=== PATIENT | male | born 1960 | race Caucasian/White ===

== ENCOUNTER 2017-09-27 22:17 | Emergency (ER) | payer OTHER ==
[2017-09-27 22:33] VITALS: BMI 38.7
--- NOTE | 2017-09-27 23:14 | PDOC ---
History of Present Illness - General History Source: Patient Exam Limitations: No Limitations - History of Present Illness Initial Comments: 09/28/17 00:43 The patient is a 55-year-old male, with a significant past medical history of HTN and diabetes, who presents to the ED with 5 days of midsternal chest pain. Pt states he broke a bone in his chest multiple times in the last few years and since then has been experiencing arthritic pain in that area. In the past week, the chest pain has been bothering the pt more often than usual and has radiated to his back. He reports eating out at [employer] and since then has been experiencing heartburn. Pt took Tums at home with no relief of his symptoms. The patient reports to the ED for further evaluation. The patient denies any shortness of breath or palpitations. He denies fever, chills, nausea, vomiting, diarrhea, or abdominal pain. <Fabienne Washington - Last Filed: 09/28/17 00:42> <Jessica Choudhary - Last Filed: 09/28/17 20:01> - General Chief Complaint: Chest Pain Stated Complaint: chest pain Time Seen by Provider: 09/27/17 22:38 Past History <Fabienne Washington - Last Filed: 09/28/17 00:42> - Suicide/Smoking/Psychosocial Hx Smoking History: Unknown if ever smoked Have you smoked in the past 12 months: No Information on smoking cessation initiated: No Hx Alcohol Use: No Drug/Substance Use Hx: No Substance Use Type: None <Jessica Choudhary - Last Filed: 09/28/17 20:01> - Past Medical History Allergies/Adverse Reactions: Allergies Allergy/AdvReac Type Severity Reaction Status Date / Time No Known Allergies Allergy Verified 09/27/17 22:33 Home Medications: Ambulatory Orders Alogliptin Bal/Pioglitazone [Oseni 25-30 mg Tablet] 1 each PO DAILY 09/27/17 Empagliflozin [Jardiance] 25 mg PO DAILY 09/27/17 Fosinopril Sodium 20 mg PO DAILY 09/27/17 Metformin HCl [Glucophage] 1,000 mg PO BID 09/27/17 Omeprazole 40 mg PO DAILY 09/27/17 Review of Systems - Review of Systems Able to Perform ROS?: Yes Comments:: 09/28/17 00:45 CONSTITUTIONAL: Absent: fever, chills, diaphoresis, generalized weakness, malaise, loss of appetite HEENT: Absent: rhinorrhea, nasal congestion, throat pain, throat swelling, difficulty swallowing, mouth swelling, ear pain, eye pain, visual Changes CARDIOVASCULAR: Present: chest pain Absent: syncope, palpitations, irregular heart rate, lightheadedness, peripheral edema RESPIRATORY: Absent: cough, shortness of breath, dyspnea with exertion, orthopnea, wheezing, stridor, hemoptysis GASTROINTESTINAL: Present: heartburn Absent: abdominal pain, abdominal distension, nausea, vomiting, diarrhea, constipation, melena, hematochezia GENITOURINARY: Absent: dysuria, frequency, urgency, hesitancy, hematuria, flank pain, genital pain MUSCULOSKELETAL: Present: back pain Absent: arthralgia, joint swelling SKIN: Absent: rash, itching, pallor HEMATOLOGIC/IMMUNOLOGIC: Absent: easy bleeding, easy bruising, lymphadenopathy, frequent infections ENDOCRINE: Absent: unexplained weight gain, unexplained weight loss, heat intolerance, cold intolerance NEUROLOGIC: Absent: headache, focal weakness or paresthesias, dizziness, unsteady gait, seizure, mental status changes, bladder or bowel incontinence PSYCHIATRIC: Absent: anxiety, depression, suicidal or homicidal ideation, hallucinations. <Fabienne Washington - Last Filed: 09/28/17 00:42> *Physical Exam - Vital Signs Last Vital Signs Temp Pulse Resp BP Pulse Ox 98.1 F 85 18 153/87 97 09/27/17 22:30 09/27/17 22:30 09/27/17 22:30 09/27/17 22:30 09/27/17 22:30 - Physical Exam Comments: 09/28/17 00:47 GENERAL: Well developed, well nourished. Awake and alert. No acute distress. NECK: Supple. Full ROM. No JVD. Carotid pulses 2+ and symmetric, without bruits. No thyromegaly. No lymphadenopathy. CARDIOVASCULAR: Regular rate and rhythm. No murmurs, rubs, or gallops. Distal pulses are 2+ and symmetric. PULMONARY: No evidence of respiratory distress. Lungs clear to auscultation bilaterally. No wheezing, rales or rhonchi. ABDOMINAL: (+)Obese, gassy. Soft. Non-tender. Non-distended. No rebound or guarding. No organomegaly. Normoactive bowel sounds. MUSCULOSKELETAL Normal range of motion at all joints. No bony deformities or tenderness. No CVA tenderness. No flank pain. EXTREMITIES: No cyanosis. No clubbing. No edema. No calf tenderness. SKIN: Warm and dry. Normal capillary refill. No rashes. No jaundice. NEUROLOGICAL: Alert, awake, appropriate. Neurologically intact <Fabienne Washington - Last Filed: 09/28/17 00:42> - Vital Signs Last Vital Signs Temp Pulse Resp BP Pulse Ox 98.1 F 85 18 153/87 97 09/27/17 22:30 09/27/17 22:30 09/27/17 22:30 09/27/17 22:30 09/27/17 22:30 <Jessica Choudhary - Last Filed: 09/28/17 20:01> ED Treatment Course - LABORATORY CBC & Chemistry Diagram: 09/28/17 00:38 09/28/17 00:38 <Jessica Choudhary - Last Filed: 09/28/17 20:01> Medical Decision Making - Medical Decision Making 09/28/17 19:54 Pt comes with gerd and chest doscomfort x 1 week. He feels it again today after eating a greasy meal at [facility]. Pt's exam and labs and EKG and CXR are all normal. He feels reassured. We discussed the importance of diet control and following with cardiology. <Jessica Choudhary - Last Filed: 09/28/17 20:01> *DC/Admit/Observation/Transfer - Attestations Scribe Attestion: 09/28/17 00:52 Documentation prepared by Fabienne Washington, acting as medical biller coder for Jessica Choudhary MD. <Fabienne Washington - Last Filed: 09/28/17 00:42> - Discharge Dispostion Admit: No <Jessica Choudhary - Last Filed: 09/28/17 20:01> Diagnosis at time of Disposition: GERD (gastroesophageal reflux disease) - Discharge Dispostion Disposition: HOME Condition at time of disposition: Stable - Referrals Referrals: Andrew Roldan MD [Primary Care Provider] - - Patient Instructions Printed Discharge Instructions: Gastroesophageal Reflux Disease (Alternative Therapy), Heartburn -- Overview, DI for Atypical Chest Pain - Post Discharge Activity
[2017-09-28 00:51] LABS: BASO % 0.5 % (0-2.0); EOS # 0.1 # (0-4.5); LYMPH # 1.6 (8-40); MCH 29.9 pg (25.7-33.7); MCHC 33.4 g/dl (32.0-35.9); MEAN CELL VOLUME 89.7 fl (80-96); MEAN PLT VOLUME 8.2 fl (7.5-11.1); MONO # 0.6 # (3.8-10.2); NEUT # 6.4 # (42.8-82.8); NEUT % 73.7 % (42.8-82.8); PLATELET COUNT 215 K/MM3 (134-434); RDW 13.9 % (11.9-15.9); WHITE BLOOD COUNT 8.7 K/mm3 (4.0-10.0)
[2017-09-28 01:22] LABS: ALBUMIN 3.9 g/dl (3.4-5.0); ALK PHOS 92 U/L (45-117); ANION GAP 8 (8-16); BILIRUBIN,TOTAL 0.4 mg/dL (0.2-1.0); CALCIUM 10.3 mg/dL (8.5-10.1); CO2 27 mmol/L (21-32); CREATININE 0.9 mg/dL (0.7-1.3); GLUCOSE,RANDOM 150 mg/dL (74-106); SGOT/AST 20 U/L (15-37); SGPT/ALT 35 U/L (12-78); TOT PROT 7.4 g/dl (6.4-8.2)
[2017-09-28 01:24] LABS: CPK 164 IU/L (39-308); TROPONIN I < 0.02 ng/ml (0.00-0.05)
[2017-09-28] MEDS ORDERED: RANITIDINE HCL 150 MG TABLET (FP) PO ONE (01:37)
[2017-09-28] MEDS ORDERED: RANITIDINE HCL 150 MG TABLET (FP) ONE (01:39)
[2017-09-28 03:18] VITALS: BP 152/86; PULSE 86; TEMP 98
--- NOTE | 2017-10-02 13:24 | EKG ---
Test Reason : Blood Pressure : / mmHG Vent. Rate : 077 BPM Atrial Rate : 077 BPM P-R Int : 160 ms QRS Dur : 082 ms QT Int : 356 ms P-R-T Axes : 030 079 059 degrees QTc Int : 402 ms SINUS RHYTHM WITH MARKED SINUS ARRHYTHMIA OTHERWISE NORMAL ECG NO PREVIOUS ECGS AVAILABLE Confirmed by JOSE COLÓN MD ([id number]) on 10/02/2017 1:24:37 PM Referred By: Confirmed By:JOSE COLÓN MD
== END 2017-09-28 03:17 | disposition home or self-care (01) ==
LOC: JER 22:17
DX: K21.9 Gastro-esophageal reflux disease without esophagitis (principal)
CPT/HCPCS: 36415; 71020-TC; 80053; 82550; 82553; 84484; 85025; 93005; 93010; 99282-25

== ENCOUNTER 2021-07-05 06:27 | Inpatient (IN) | payer OTHER ==
[2021-07-05] MEDS ORDERED: SODIUM CHLORIDE 500 ML IV STA (07:36)
[2021-07-05 08:17] LABS: BASO % 0.4 % (0-2.0); EOS % 0.8 % (0-4.5); HEMATOCRIT 36.7 % (35.4-49); HEMOGLOBIN 12.8 GM/dL (11.7-16.9); LYMPH % 11.3 % (8-40); MCH 30.5 pg (25.7-33.7); MEAN CELL VOLUME 87.2 fl (80-96); MEAN PLT VOLUME 8.1 fl (7.5-11.1); MONO % 5.8 % (3.8-10.2); NEUT % 81.7 % (42.8-82.8); PLATELET COUNT 177 10^3/uL (134-434); RDW 14.3 % (11.9-15.9); WHITE BLOOD COUNT 8.3 K/mm3 (4.0-10.0)
[2021-07-05 08:19] LABS: INR 1.07 (0.83-1.09); PROTHROMBIN TIME (PATIENT) 13.2 SEC (9.7-13.0)
[2021-07-05 08:32] LABS: ALBUMIN 3.5 g/dl (3.4-5.0); CALCIUM 9.3 mg/dL (8.5-10.1)
[2021-07-05 08:33] LABS: BLOOD UREA NITROGEN 16.3 mg/dL (7-18)
[2021-07-05 08:37] LABS: BILIRUBIN,TOTAL 0.5 mg/dL (0.2-1); TOT PROT 7.1 g/dl (6.4-8.2)
[2021-07-05] MEDS ORDERED: PANTOPRAZOLE SODIUM 40 MG VIAL IVPUSH SCH (13:30)
[2021-07-05] MEDS ORDERED: PANTOPRAZOLE SODIUM 40 MG/100 ML BAG IVPB ONE (13:37)
[2021-07-05] MEDS: SODIUM CHLORIDE 1,000 ML IV SCH ×2 (13:50→20:48)
[2021-07-05] MEDS: PANTOPRAZOLE SODIUM 40 MG VIAL IVPUSH SCH ×2 (14:00→21:30)
[2021-07-05 15:06] LABS: HEMATOCRIT 38.7 % (35.4-49); HEMOGLOBIN 13.3 GM/dL (11.7-16.9); MCH 30.7 pg (25.7-33.7); MCHC 34.3 g/dl (32.0-35.9); MEAN CELL VOLUME 89.4 fl (80-96); MEAN PLT VOLUME 8.4 fl (7.5-11.1); PLATELET COUNT 211 10^3/uL (134-434); RBC 4.33 M/mm3 (4.00-5.60); RDW 14.7 % (11.9-15.9); WHITE BLOOD COUNT 8.5 K/mm3 (4.0-10.0)
[2021-07-05] MEDS ORDERED: PNEUMOC 13-VAL CONJ-DIP CRM/PF 0.5 ML DISP.SYRIN IM ONE (20:28)
[2021-07-05 20:40] VITALS: BMI 39.3
[2021-07-05] MEDS ORDERED: PNEUMOCOCCAL 23 VACCINE 0.5 ML VIAL IM ONE (21:00)
[2021-07-05] MEDS ORDERED: FLU VACC QS2021-22(6MOS UP)/PF 60 MCG/0.5 ML SYRINGE IM ONE (21:00)
[2021-07-05] MEDS: INSULIN SLIDING SCALE (NOVOLOG) 1 VIAL SQ SCH (21:07)
[2021-07-06] MEDS ORDERED: ACETAMINOPHEN 325 MG TABLET (FP) PO PRN (05:22)
[2021-07-06] MEDS: INSULIN SLIDING SCALE (NOVOLOG) 1 VIAL SQ SCH ×5 (06:04→21:11)
[2021-07-06 08:07] LABS: HEMATOCRIT 34.8 % (35.4-49); HEMOGLOBIN 12.2 GM/dL (11.7-16.9); MCH 30.9 pg (25.7-33.7); MEAN CELL VOLUME 88.2 fl (80-96); MEAN PLT VOLUME 8.4 fl (7.5-11.1); PLATELET COUNT 168 10^3/uL (134-434); RBC 3.95 M/mm3 (4.00-5.60); RDW 14.4 % (11.9-15.9); WHITE BLOOD COUNT 6.9 K/mm3 (4.0-10.0)
[2021-07-06 08:37] LABS: CALCIUM 8.4 mg/dL (8.5-10.1)
[2021-07-06 08:38] LABS: MAGNESIUM 1.7 mg/dL (1.8-2.4)
[2021-07-06 08:40] LABS: CREATININE 0.9 mg/dL (0.55-1.3)
[2021-07-06 08:41] LABS: PHOSPHOROUS 2.8 mg/dL (2.5-4.9)
[2021-07-06] MEDS: PANTOPRAZOLE SODIUM 40 MG VIAL IVPUSH SCH (10:19)
[2021-07-06] MEDS: SODIUM CHLORIDE 1,000 ML IV SCH (10:33)
[2021-07-06] MEDS ORDERED: PEG 3350/NA SULF BICARB CL/KCL 4000 ML SOLN.RECON PO ONE (16:00)
[2021-07-06] MEDS: LISINOPRIL 20 MG TABLET PO SCH (17:28)
[2021-07-06 18:53] LABS: HEMATOCRIT 35.4 % (35.4-49); HEMOGLOBIN 12.4 GM/dL (11.7-16.9); MCH 30.5 pg (25.7-33.7); MCHC 34.9 g/dl (32.0-35.9); MEAN CELL VOLUME 87.6 fl (80-96); PLATELET COUNT 172 10^3/uL (134-434); RBC 4.04 M/mm3 (4.00-5.60); RDW 14.4 % (11.9-15.9); WHITE BLOOD COUNT 7.3 K/mm3 (4.0-10.0)
[2021-07-06] MEDS ORDERED: BISACODYL 5 MG TABLET.DR (FP) PO ONE (20:00)
[2021-07-06] MEDS: ATORVASTATIN CA 10 MG TABLET (FP) PO SCH (21:11)
[2021-07-07] MEDS: INSULIN SLIDING SCALE (NOVOLOG) 1 VIAL SQ SCH ×4 (07:00→21:13)
[2021-07-07 08:24] LABS: BASO % 0.4 % (0-2.0); EOS % 1.2 % (0-4.5); HEMATOCRIT 35.2 % (35.4-49); HEMOGLOBIN 12.3 GM/dL (11.7-16.9); LYMPH % 12.7 % (8-40); MCH 30.8 pg (25.7-33.7); MCHC 34.8 g/dl (32.0-35.9); MEAN CELL VOLUME 88.4 fl (80-96); MEAN PLT VOLUME 8.4 fl (7.5-11.1); MONO % 6.3 % (3.8-10.2); NEUT % 79.4 % (42.8-82.8); PLATELET COUNT 196 10^3/uL (134-434); RBC 3.98 M/mm3 (4.00-5.60); RDW 14.6 % (11.9-15.9); WHITE BLOOD COUNT 6.6 K/mm3 (4.0-10.0)
[2021-07-07 08:42] LABS: BLOOD UREA NITROGEN 8.2 mg/dL (7-18); CALCIUM 8.4 mg/dL (8.5-10.1)
[2021-07-07 08:45] LABS: CREATININE 0.9 mg/dL (0.55-1.3); MAGNESIUM 1.7 mg/dL (1.8-2.4)
[2021-07-07 08:46] LABS: PHOSPHOROUS 2.4 mg/dL (2.5-4.9)
[2021-07-07] MEDS: LISINOPRIL 20 MG TABLET PO SCH (09:26)
[2021-07-07] MEDS: PANTOPRAZOLE 20 MG TABLET PO SCH (09:26)
[2021-07-07] MEDS ORDERED: FOSINOPRIL SODIUM 20 MG PO SCH (10:00)
[2021-07-07] MEDS: SODIUM CHLORIDE 1,000 ML IV SCH (13:42)
[2021-07-07] MEDS ORDERED: MAGNESIUM OXIDE 400 MG TABLET (FP) PO ONE (16:35)
[2021-07-07] MEDS: ATORVASTATIN CA 10 MG TABLET (FP) PO SCH (21:13)
[2021-07-08] MEDS: INSULIN SLIDING SCALE (NOVOLOG) 1 VIAL SQ SCH ×5 (06:46→21:30)
[2021-07-08] MEDS: SODIUM CHLORIDE 1,000 ML IV SCH (06:58)
[2021-07-08] MEDS: PANTOPRAZOLE 20 MG TABLET PO SCH (09:01)
[2021-07-08] MEDS: LISINOPRIL 20 MG TABLET PO SCH (09:01)
[2021-07-08 09:41] LABS: HEMATOCRIT 33.6 % (35.4-49); HEMOGLOBIN 11.8 GM/dL (11.7-16.9); MEAN CELL VOLUME 88.7 fl (80-96); MEAN PLT VOLUME 8.4 fl (7.5-11.1); PLATELET COUNT 194 10^3/uL (134-434); RBC 3.79 M/mm3 (4.00-5.60); RDW 14.7 % (11.9-15.9); WHITE BLOOD COUNT 6.2 K/mm3 (4.0-10.0)
[2021-07-08 10:06] LABS: CALCIUM 8.1 mg/dL (8.5-10.1)
[2021-07-08 10:07] LABS: ALBUMIN 3.2 g/dl (3.4-5.0); BLOOD UREA NITROGEN 6.8 mg/dL (7-18); MAGNESIUM 1.7 mg/dL (1.8-2.4)
[2021-07-08 10:08] LABS: CREATININE 1.1 mg/dL (0.55-1.3); PHOSPHOROUS 2.2 mg/dL (2.5-4.9)
[2021-07-08 10:10] LABS: BILIRUBIN,TOTAL 0.6 mg/dL (0.2-1); TOT PROT 6.5 g/dl (6.4-8.2)
[2021-07-08] MEDS ORDERED: MAGNESIUM OXIDE 400 MG TABLET (FP) PO ONE (17:08)
[2021-07-08] MEDS ORDERED: INSULIN (NOVOLOG) ASPART 100 UNITS/ML 10ML VIAL ONE (21:13)
[2021-07-08] MEDS: ATORVASTATIN CA 10 MG TABLET (FP) PO SCH (21:29)
[2021-07-08] MEDS: INSULIN (LEVEMIR) 100 UNITS/ML UNITS SQ SCH (21:29)
[2021-07-08] MEDS: NAPH,MB-DB/K PH,MBDB POWDER PACKET PO SCH (21:29)
[2021-07-08 23:03] VITALS: PULSE 73
[2021-07-09 06:05] VITALS: TEMP 98.2
[2021-07-09] MEDS: INSULIN SLIDING SCALE (NOVOLOG) 1 VIAL SQ SCH ×2 (06:11→11:38)
[2021-07-09 08:42] VITALS: BP 130/74
[2021-07-09] MEDS: NAPH,MB-DB/K PH,MBDB POWDER PACKET PO SCH (09:01)
[2021-07-09] MEDS: PANTOPRAZOLE 20 MG TABLET PO SCH (09:01)
[2021-07-09] MEDS: LISINOPRIL 20 MG TABLET PO SCH (09:01)
[2021-07-09] MEDS: INSULIN (LEVEMIR) 100 UNITS/ML UNITS SQ SCH (09:02)
[2021-07-09 09:56] LABS: BASO % 0.5 % (0-2.0); EOS % 0.8 % (0-4.5); HEMATOCRIT 35.9 % (35.4-49); HEMOGLOBIN 12.3 GM/dL (11.7-16.9); MCH 30.6 pg (25.7-33.7); MCHC 34.4 g/dl (32.0-35.9); MEAN CELL VOLUME 89.1 fl (80-96); MEAN PLT VOLUME 8.2 fl (7.5-11.1); MONO % 6.8 % (3.8-10.2); NEUT % 77.9 % (42.8-82.8); PLATELET COUNT 206 10^3/uL (134-434); RBC 4.02 M/mm3 (4.00-5.60); RDW 14.7 % (11.9-15.9); WHITE BLOOD COUNT 6.7 K/mm3 (4.0-10.0)
[2021-07-09 10:13] LABS: BLOOD UREA NITROGEN 8.6 mg/dL (7-18); CALCIUM 8.6 mg/dL (8.5-10.1); CO2 26 mmol/L (21-32); GLUCOSE,RANDOM 213 mg/dL (74-106)
[2021-07-09 10:17] LABS: CREATININE 0.9 mg/dL (0.55-1.3)
[2021-07-09 11:44] LABS: SODIUM 141 mmol/L (136-145)
[2021-07-09 11:45] LABS: CHLORIDE 109 mmol/L (98-107)
== END 2021-07-09 15:10 | disposition home or self-care (01) | DRG 379 ==
LOC: JER 06:27 → JERBED 12:45 → J6S 20:16
PROVIDERS: ATTEND Internal Medicine
PROC: 0DB78ZX Excision of Stomach, Pylorus, Via Natural or Artificial Opening Endoscopic, Diagnostic (ICD-10-PCS; 2021-07-07)
PROC: 0DB98ZX Excision of Duodenum, Via Natural or Artificial Opening Endoscopic, Diagnostic (ICD-10-PCS; 2021-07-07)
PROC: 0DJD8ZZ Inspection of Lower Intestinal Tract, Via Natural or Artificial Opening Endoscopic (ICD-10-PCS; principal; 2021-07-07 12:30)
DX: K57.31 Diverticulosis of large intestine without perforation or abscess with bleeding (principal); E11.9 Type 2 diabetes mellitus without complications; I10 Essential (primary) hypertension; E66.9 Obesity, unspecified; Z68.39 Body mass index [BMI] 39.0-39.9, adult; Z79.84 Long term (current) use of oral hypoglycemic drugs; R19.7 Diarrhea, unspecified; K64.8 Other hemorrhoids; K44.9 Diaphragmatic hernia without obstruction or gangrene; K26.9 Duodenal ulcer, unspecified as acute or chronic, without hemorrhage or perforation
CPT/HCPCS: 36415; 71045-TC-FY; 74177-TC; 80048; 80053; 82272; 82962; 83735; 84100; 85025; 85027; 85610; 86850; 86900; 86901; 87045; 87046; 87177; 87186; 87209; 88305-TC; 90686; 90732; 93005; 93010; 99285-25; C9803; G0009; Q9967; U0003; U0005

== ENCOUNTER 2023-03-26 09:35 | Emergency (ER) | payer OTHER ==
[2023-03-26 09:42] VITALS: BP 153/77; PULSE 90; RESP 16; TEMP 98.2; BMI 38.7
[2023-03-26] MEDS ORDERED: ACETAMINOPHEN 500 MG TABLET (FP) PO ONE (09:59)
[2023-03-26] MEDS ORDERED: LIDOCAINE 5% TOPICAL PATCH TP ONE (09:59)
[2023-03-26] MEDS ORDERED: KETOROLAC TROMETHAMINE 30 MG/1 ML VIAL IM ONE (09:59)
[2023-03-26] MEDS ORDERED: METHOCARBAMOL 500 MG TABLET PO ONE (09:59)
[2023-03-26] MEDS ORDERED: LIDOCAINE 5% TOPICAL PATCH ONE (10:03)
[2023-03-26] MEDS ORDERED: ACETAMINOPHEN 500 MG TABLET (FP) ONE (10:04)
[2023-03-26] MEDS ORDERED: KETOROLAC TROMETHAMINE 30 MG/1 ML VIAL ONE (10:04)
[2023-03-26] MEDS ORDERED: METHOCARBAMOL 500 MG TABLET ONE (10:19)
[2023-03-26] MEDS ORDERED: LIDOCAINE PATCH REMOVAL MC ONE (22:00)
== END 2023-03-26 10:43 | disposition home or self-care (01) ==
LOC: JERFT 09:35
PROC: 3E0233Z Introduction of Anti-inflammatory into Muscle, Percutaneous Approach (ICD-10-PCS; principal; 2023-03-26)
DX: M54.6 Pain in thoracic spine (principal)
CPT/HCPCS: 99284-25

== ENCOUNTER 2024-01-12 09:42 | Emergency (ER) | payer OTHER ==
[2024-01-12 09:51] VITALS: BMI 34.4
[2024-01-12] MEDS ORDERED: METHOCARBAMOL 500 MG TABLET ONE (12:18)
[2024-01-12] MEDS: METHOCARBAMOL 750 MG TABLET PO ONE (12:28)
[2024-01-12 14:20] VITALS: BP 108/67; PULSE 100; RESP 20; TEMP 98
== END 2024-01-12 14:47 | disposition home or self-care (01) ==
LOC: JER 09:42
DX: M25.512 Pain in left shoulder (principal); G89.29 Other chronic pain; E11.65 Type 2 diabetes mellitus with hyperglycemia
CPT/HCPCS: 71046-TC-FY; 73030-TC-LT-FY; 82962; 99284-25

== ENCOUNTER 2024-01-15 16:15 | Emergency (ER) | payer OTHER ==
[2024-01-15 16:34] VITALS: BMI 34.4
[2024-01-15 17:33] LABS: BASO % 0.1 % (0-2.0); EOS % 0.3 % (0-4.5); HEMATOCRIT 39.3 % (35.4-49); HEMOGLOBIN 13.1 GM/dL (11.7-16.9); LYMPH % 8.5 % (8-40); MCH 28.6 pg (25.7-33.7); MCHC 33.3 g/dl (32.0-35.9); MEAN CELL VOLUME 86.1 fl (80-96); MEAN PLT VOLUME 8.6 fl (7.5-11.1); MONO % 6.8 % (3.8-10.2); NEUT % 84.3 % (42.8-82.8); PLATELET COUNT 284 10^3/uL (134-434); RBC 4.57 M/mm3 (4.00-5.60); RDW 14.7 % (11.9-15.9); WHITE BLOOD COUNT 11.2 K/mm3 (4.0-10.0)
[2024-01-15 17:34] LABS: VENOUS BASE EXCESS -5.8 mmol/L (-2-2); VENOUS O2 SATURATION 83.2 % (70-80); VENOUS PCO2 31.6 mmHg (38-52); VENOUS PH 7.378 (7.310-7.410)
[2024-01-15 17:49] LABS: POTASSIUM 4.8 mmol/L (3.5-5.1)
[2024-01-15 17:51] LABS: CALCIUM 9.3 mg/dL (8.5-10.1)
[2024-01-15 17:52] LABS: ALBUMIN 3.5 g/dl (3.4-5.0); BLOOD UREA NITROGEN 24.2 mg/dL (7-18); MAGNESIUM 2.1 mg/dL (1.8-2.4)
[2024-01-15 17:55] LABS: CREATININE 1.1 mg/dL (0.55-1.3)
[2024-01-15 17:56] LABS: BILIRUBIN,TOTAL 0.9 mg/dL (0.2-1)
[2024-01-15 17:57] LABS: TOT PROT 7.2 g/dl (6.4-8.2)
[2024-01-15 18:00] LABS: N-TERMINAL BNP 3142.8 pg/ml (5-125)
[2024-01-15] MEDS ORDERED: FUROSEMIDE 40 MG/4 ML INJECTABLE VIAL ONE (18:22)
[2024-01-15] MEDS ORDERED: ASPIRIN 325 MG TABLET ONE (18:28)
[2024-01-15] MEDS ORDERED: ATORVASTATIN CA 80 MG TABLET (FP) ONE (18:28)
[2024-01-15] MEDS ORDERED: HEPARIN NA (PORCINE) 5,000 UNITS/ML 1ML VIAL ONE (18:28)
[2024-01-15] MEDS ORDERED: HEPARIN NA (PORCINE) 5,000 UNITS/ML 1ML VIAL IVPUSH PRN ×2 (18:32)
[2024-01-15] MEDS: HEPARIN NA (PORCINE) 5,000 UNITS/ML 1ML VIAL IVPUSH ONE ×2 (18:36→18:44)
[2024-01-15] MEDS: FUROSEMIDE 40 MG/4 ML INJECTABLE VIAL IVPUSH ONE (18:36)
[2024-01-15] MEDS: ATORVASTATIN CA 80 MG TABLET (FP) PO ONE (18:36)
[2024-01-15] MEDS: ASPIRIN 81 MG CHEWABLE TABLETS PO ONE (18:36)
[2024-01-15] MEDS ORDERED: HEPARIN INFUSION - 25,000 UNITS/500 ML INFUS.BAG IVPB ONE (18:44)
[2024-01-15 18:55] VITALS: BP 107/70; PULSE 98; RESP 18; TEMP 98.1
[2024-01-15] MEDS: HEPARIN SOD,PORK IN 0.45% NACL 25,000 UNITS/500 ML INFUS.BAG IVPB SCH (19:25)
[2024-01-15 21:01] LABS: INR 1.29 (0.83-1.09); PROTHROMBIN TIME (PATIENT) 14.9 SEC (9.7-13.0)
[2024-01-15 21:04] LABS: ACTIVATED PTT 43.8 SECONDS (25.2-36.5)
== END 2024-01-15 21:43 | disposition short-term general hospital (02) ==
LOC: JER 16:15
PROC: 3E033GC Introduction of Other Therapeutic Substance into Peripheral Vein, Percutaneous Approach (ICD-10-PCS; principal; 2024-01-15)
PROC: 3E033GC Introduction of Other Therapeutic Substance into Peripheral Vein, Percutaneous Approach (ICD-10-PCS; 2024-01-15)
DX: R06.02 Shortness of breath (principal); I21.4 Non-ST elevation (NSTEMI) myocardial infarction; I11.0 Hypertensive heart disease with heart failure; I50.9 Heart failure, unspecified; R05.9 Cough, unspecified; Z20.822 Contact with and (suspected) exposure to COVID-19
CPT/HCPCS: 0241U-QW; 36415; 71045-TC-FY; 80053; 82010; 82803; 83735; 83880; 84484; 85025; 85610; 85730; 86850; 86900; 86901; 93005; 93010; 99291; J1644

== ENCOUNTER 2024-05-19 04:20 | Day surgery (SDC) | payer OTHER ==
[2024-05-13 08:06] VITALS: BMI 33.0
[2024-05-19 09:21] VITALS: TEMP 97.6
[2024-05-19] MEDS: TETRACAINE/BENZOCAINE/BUTAMBEN 20 GM SPR TP ONE (10:25)
[2024-05-19 11:14] VITALS: PULSE 74
[2024-05-19 11:18] VITALS: BP 121/70; RESP 13
== END 2024-05-19 11:17 | disposition home or self-care (01) ==
LOC: JASU-ENDO 04:20
PROVIDERS: ATTEND Internal Medicine Gastroenterology
PROC: 0DJ08ZZ Inspection of Upper Intestinal Tract, Via Natural or Artificial Opening Endoscopic (ICD-10-PCS; principal; 2024-05-19 10:00)
DX: K21.9 Gastro-esophageal reflux disease without esophagitis (principal); K44.9 Diaphragmatic hernia without obstruction or gangrene; K22.2 Esophageal obstruction
CPT/HCPCS: 82962

== ENCOUNTER 2024-08-09 17:18 | Observation (INO) | payer OTHER ==
[2024-08-09] MEDS ORDERED: ACETAMINOPHEN INJECTION 100 ML ONE (18:21)
[2024-08-09] MEDS ORDERED: FAMOTIDINE 20 MG/50 ML IVPB 20 MG/50 ML MG IVPB ONE (18:21)
[2024-08-09] MEDS ORDERED: MAG HYDROX/AL HYDROX/SIMETH 30 ML UNIT-DOSE CUP ONE (18:21)
[2024-08-09] MEDS: SODIUM CHLORIDE 0.9% 500 ML INFUS.BAG IV ONE (18:47)
[2024-08-09] MEDS: ACETAMINOPHEN 1000 MG/100 ML BAG IVPB ONE (18:47)
[2024-08-09] MEDS: MAG HYDROX/AL HYDROX/SIMETH 30 ML UNIT-DOSE CUP PO ONE (18:47)
[2024-08-09] MEDS: FAMOTIDINE 20 MG/50 ML IVPB 20 MG/50 ML MG IVPB ONE (18:47)
[2024-08-09 18:53] LABS: BASO % 0.2 % (0-2.0); HEMATOCRIT 40.2 % (35.4-49); HEMOGLOBIN 13.2 GM/dL (11.7-16.9); LYMPH % 6.6 % (8-40); MCH 27.5 pg (25.7-33.7); MCHC 32.8 g/dl (32.0-35.9); MEAN CELL VOLUME 83.7 fl (80-96); MEAN PLT VOLUME 7.8 fl (7.5-11.1); MONO % 6.8 % (3.8-10.2); NEUT % 84.4 % (42.8-82.8); PLATELET COUNT 281 10^3/uL (134-434); WHITE BLOOD COUNT 13.4 K/mm3 (4.0-10.0)
[2024-08-09 19:08] LABS: INR 1.21 (0.83-1.09); PROTHROMBIN TIME (PATIENT) 13.6 SEC (9.7-13.0)
[2024-08-09 19:11] LABS: ACTIVATED PTT 31.4 SECONDS (25.2-36.5)
[2024-08-09 19:20] LABS: POTASSIUM 3.9 mmol/L (3.5-5.1)
[2024-08-09 19:22] LABS: ALBUMIN 3.6 g/dl (3.4-5.0); CALCIUM 9.2 mg/dL (8.5-10.1)
[2024-08-09 19:23] LABS: BLOOD UREA NITROGEN 23.8 mg/dL (7-18); MAGNESIUM 1.7 mg/dL (1.8-2.4)
[2024-08-09 19:25] LABS: CREATININE 1.5 mg/dL (0.55-1.3)
[2024-08-09 19:27] LABS: BILIRUBIN,TOTAL 0.5 mg/dL (0.2-1); TOT PROT 6.9 g/dl (6.4-8.2)
[2024-08-09] MEDS ORDERED: PANTOPRAZOLE SODIUM 40 MG/100 ML BAG IVPB ONE (19:43)
[2024-08-09] MEDS: PANTOPRAZOLE SODIUM 40 MG VIAL IVPUSH ONE (19:52)
[2024-08-10] MEDS ORDERED: MAGNESIUM SULFATE IN WATER 2 GM/50 ML IVPB IVPB ONE (00:06)
[2024-08-10] MEDS: MAGNESIUM SULFATE IN WATER 2 GM/50 ML IVPB IVPB ONE (00:23)
[2024-08-10] MEDS: SODIUM CHLORIDE 1,000 ML IV SCH (00:23)
[2024-08-10] MEDS ORDERED: cefTRIAXone SODIUM 1 GM VIAL ONE (01:29)
[2024-08-10] MEDS: CEFTRIAXONE 1 GM in DEXTROSE 5%-WATER - 50 ML IVPB SCH (01:37)
[2024-08-10 03:49] VITALS: BMI 31.7
[2024-08-10] MEDS ORDERED: HEPARIN NA (PORCINE) 5,000 UNITS/ML 1ML VIAL SQ SCH (06:00)
[2024-08-10] MEDS: INSULIN ASPART SLIDING SCALE (NOVOLOG) 1 VIAL SQ SCH (06:36)
[2024-08-10 10:11] LABS: HEMATOCRIT 36.6 % (35.4-49); HEMOGLOBIN 12.1 GM/dL (11.7-16.9); MCH 27.7 pg (25.7-33.7); MEAN PLT VOLUME 7.9 fl (7.5-11.1); PLATELET COUNT 233 10^3/uL (134-434); RBC 4.36 M/mm3 (4.00-5.60); WHITE BLOOD COUNT 9.8 K/mm3 (4.0-10.0)
[2024-08-10] MEDS: CLOPIDOGREL BISULFATE 75 MG TABLET (FP) PO SCH (10:22)
[2024-08-10] MEDS: ASPIRIN COATED 81 MG TABLET.EC PO SCH (10:22)
[2024-08-10 10:38] LABS: ALBUMIN 3.1 g/dl (3.4-5.0); CALCIUM 8.1 mg/dL (8.5-10.1)
[2024-08-10 10:39] LABS: BLOOD UREA NITROGEN 19.2 mg/dL (7-18); MAGNESIUM 2.1 mg/dL (1.8-2.4)
[2024-08-10 10:42] LABS: CREATININE 1.2 mg/dL (0.55-1.3); PHOSPHOROUS 2.9 mg/dL (2.5-4.9)
[2024-08-10 10:43] LABS: BILIRUBIN,TOTAL 0.4 mg/dL (0.2-1); TOT PROT 6.2 g/dl (6.4-8.2)
[2024-08-10] MEDS: CEFTRIAXONE 1 G/50 ML PREMIX 50 ML IVPB SCH (11:51)
[2024-08-10] MEDS: LOSARTAN POTASSIUM 25 MG TABLET PO SCH (12:43)
[2024-08-10] MEDS: ATORVASTATIN CA 80 MG TABLET (FP) PO SCH (22:32)
[2024-08-11 09:41] LABS: BASO % 0.1 % (0-2.0); EOS % 4.6 % (0-4.5); HEMATOCRIT 34.3 % (35.4-49); HEMOGLOBIN 11.4 GM/dL (11.7-16.9); MCH 27.7 pg (25.7-33.7); MCHC 33.4 g/dl (32.0-35.9); MEAN CELL VOLUME 82.9 fl (80-96); MEAN PLT VOLUME 7.9 fl (7.5-11.1); MONO % 8.3 % (3.8-10.2); PLATELET COUNT 187 10^3/uL (134-434); RBC 4.14 M/mm3 (4.00-5.60); RDW 17.1 % (11.9-15.9); WHITE BLOOD COUNT 6.2 K/mm3 (4.0-10.0)
[2024-08-11 09:46] LABS: INR 1.23 (0.83-1.09); PROTHROMBIN TIME (PATIENT) 13.8 SEC (9.7-13.0)
[2024-08-11 10:18] LABS: POTASSIUM 4.1 mmol/L (3.5-5.1)
[2024-08-11 10:20] LABS: CALCIUM 8.3 mg/dL (8.5-10.1)
[2024-08-11 10:21] LABS: BLOOD UREA NITROGEN 13.8 mg/dL (7-18)
[2024-08-11 10:22] LABS: MAGNESIUM 1.9 mg/dL (1.8-2.4)
[2024-08-11 10:25] LABS: BILIRUBIN,TOTAL 0.3 mg/dL (0.2-1); TOT PROT 5.9 g/dl (6.4-8.2)
[2024-08-12 06:58] VITALS: RESP 18; TEMP 97.5
[2024-08-12 08:27] LABS: POTASSIUM 4.1 mmol/L (3.5-5.1)
[2024-08-12 08:33] LABS: ALBUMIN 3.4 g/dl (3.4-5.0); BLOOD UREA NITROGEN 10.3 mg/dL (7-18); MAGNESIUM 1.9 mg/dL (1.8-2.4)
[2024-08-12 08:36] LABS: CREATININE 1.1 mg/dL (0.55-1.3)
[2024-08-12 08:37] LABS: BILIRUBIN,TOTAL 0.3 mg/dL (0.2-1); TOT PROT 6.6 g/dl (6.4-8.2)
[2024-08-12 08:42] LABS: BASO % 0.2 % (0-2.0); EOS % 3.1 % (0-4.5); HEMOGLOBIN 12.4 GM/dL (11.7-16.9); LYMPH % 16.6 % (8-40); MCH 27.4 pg (25.7-33.7); MCHC 32.8 g/dl (32.0-35.9); MEAN CELL VOLUME 83.7 fl (80-96); MONO % 7.4 % (3.8-10.2); NEUT % 72.7 % (42.8-82.8); PLATELET COUNT 234 10^3/uL (134-434); RBC 4.54 M/mm3 (4.00-5.60); RDW 17.4 % (11.9-15.9); WHITE BLOOD COUNT 8.8 K/mm3 (4.0-10.0)
[2024-08-12] MEDS: PANTOPRAZOLE 40 MG TABLET PO SCH (10:14)
[2024-08-12 11:34] VITALS: BP 128/79; PULSE 78
== END 2024-08-12 11:38 | disposition home or self-care (01) ==
LOC: JER 17:18 → JERBED 21:27 → J8W 08-10 02:05
PROVIDERS: ADMIT Internal Medicine; ATTEND Nurse Practitioner Family
PROC: 0DB68ZX Excision of Stomach, Via Natural or Artificial Opening Endoscopic, Diagnostic (ICD-10-PCS; principal; 2024-08-09)
PROC: 0DB78ZX Excision of Stomach, Pylorus, Via Natural or Artificial Opening Endoscopic, Diagnostic (ICD-10-PCS; 2024-08-09)
PROC: 3E033NZ Introduction of Analgesics, Hypnotics, Sedatives into Peripheral Vein, Percutaneous Approach (ICD-10-PCS; 2024-08-09)
PROC: 3E03329 Introduction of Other Anti-infective into Peripheral Vein, Percutaneous Approach (ICD-10-PCS; 2024-08-09)
PROC: 3E033GC Introduction of Other Therapeutic Substance into Peripheral Vein, Percutaneous Approach (ICD-10-PCS; 2024-08-09)
PROC: 3E0337Z Introduction of Electrolytic and Water Balance Substance into Peripheral Vein, Percutaneous Approach (ICD-10-PCS; 2024-08-09)
DX: K55.059 Acute (reversible) ischemia of intestine, part and extent unspecified (principal); A41.9 Sepsis, unspecified organism; N17.9 Acute kidney failure, unspecified; I25.10 Atherosclerotic heart disease of native coronary artery without angina pectoris; I11.9 Hypertensive heart disease without heart failure; D12.8 Benign neoplasm of rectum; Z95.5 Presence of coronary angioplasty implant and graft
CPT/HCPCS: 36415; 71045-TC-FY; 74177-TC; 80053; 82272; 82962; 83605; 83690; 83735; 84100; 84484; 85025; 85027; 85610; 85730; 86140; 86850; 86900; 86901; 87635; 88305-TC; 88342-TC; 93005; 93010; 93975; 99285-25; G0378; J0131